=== PATIENT | female | born 1975 | race Caucasian/White ===

== ENCOUNTER 2018-08-19 18:22 | Emergency (ER) | payer OTHER ==
[2018-08-19 18:36] VITALS: BP 123/79; PULSE 67; RESP 18; TEMP 97.9
[2018-08-19] MEDS ORDERED: KETOROLAC 30 MG/ML 1 ML VIAL IM STA (19:31)
[2018-08-19] MEDS ORDERED: MORPHINE SULFATE 4 MG/ML SYRINGE IM STA (19:31)
[2018-08-19] MEDS ORDERED: HYDROmorphone 1 MG/ML 1 ML SYRINGE IM STA (19:33)
--- NOTE | 2018-08-19 19:35 | XR ---
EXAMINATION TYPE: XR elbow limited RT DATE OF EXAM: 08/19/2018 COMPARISON: NONE HISTORY: Pain after falling TECHNIQUE: 2 views FINDINGS: I see no fracture nor dislocation. Joint spaces appear normal. There is no sign of elbow maura int effusion. IMPRESSION: Negative right elbow exam.
--- NOTE | 2018-08-19 19:35 | XR ---
EXAMINATION TYPE: XR shoulder complete RT DATE OF EXAM: 08/19/2018 COMPARISON: NONE HISTORY: Pain after falling TECHNIQUE: 2 views FINDINGS: There is comminuted transverse fracture of the right humeral neck. There is no dislocation. Fracture line appears to extend to the humeral head. Scapula appears intact. IMPRESSION: Comminuted humeral neck fracture. There is displacement up to 1 cm.
--- NOTE | 2018-08-19 20:49 | ED ---
Upper Extremity HPI - General Source: patient Mode of arrival: ambulatory Limitations: no limitations <Leni Terrell - Last Filed: 08/20/18 02:33> <Federica Manzo - Last Filed: 08/20/18 02:48> - General Chief Complaint: Extremity Injury, Upper Stated Complaint: Poss shoulder/elbow dislocation Time Seen by Provider: 08/19/18 18:46 - History of Present Illness Initial Comments: 42-year-old female patient presents to the emergency department today for evaluation of right shoulder and right elbow pain after expressing a fall. Patient states that prior to arrival she was getting out of a boat, states 1 foot on the dock however the boat was still moving which caused her to fall onto the right shoulder. Patient states that she is having severe pain is unable to move the arm. She is reporting a mild tingling sensation to the fingers on the right hand. Denies taking any medication for her symptoms. She denies hitting her head or losing consciousness. Denies any neck or back pain. Denies any history of injury to this extremity. Patient denies any headache, chest pain, shortness of breath, dizziness, weakness, abdominal pain, nausea, vomiting, or difficulties with bowel movements or urination. (Leni Terrell) - Related Data Previous Rx's Medication Instructions Recorded Hydrocodone/Acetaminophen [[place] 1 tab PO Q6HR PRN #12 tab 08/19/18 5-325] Allergies Allergy/AdvReac Type Severity Reaction Status Date / Time No Known Allergies Allergy Verified 08/19/18 18:35 Review of Systems ROS Other: All systems not noted in ROS Statement are negative. <Leni Terrell - Last Filed: 08/20/18 02:33> ROS Other: All systems not noted in ROS Statement are negative. <Federica Manzo - Last Filed: 08/20/18 02:48> ROS Statement: Those systems with pertinent positive or pertinent negative responses have been documented in the HPI. Past Medical History Past Medical History: No Reported History History of Any Multi-Drug Resistant Organisms: None Reported Past Surgical History: Tonsillectomy Additional Past Surgical History / Comment(s): cyst removal Past Psychological History: No Psychological Hx Reported Smoking Status: Never smoker Past Alcohol Use History: Occasional Past Drug Use History: None Reported <Leni Terrell - Last Filed: 08/20/18 02:33> General Exam Limitations: no limitations General appearance: alert, in no apparent distress, other (Physical well- developed, well-nourished adult female patient in no acute distress. Vital signs upon presentation are temperature 97.9F, pulse 67, respirations 18, blood pressure 123/79, pulse ox 100% on room air.) Eye exam: Present: normal appearance, PERRL, EOMI. Absent: scleral icterus, conjunctival injection, periorbital swelling ENT exam: Present: normal exam, normal oropharynx, mucous membranes moist Neck exam: Present: normal inspection, full ROM, other (Nontender, no step-off, no deformity to firm midline palpation of the posterior cervical spine. Full range of motion without pain or limitation.). Absent: tenderness, meningismus, lymphadenopathy Respiratory exam: Present: normal lung sounds bilaterally. Absent: respiratory distress, wheezes, rales, rhonchi, stridor Cardiovascular Exam: Present: regular rate, normal rhythm, normal heart sounds. Absent: systolic murmur, diastolic murmur, rubs, gallop, clicks GI/Abdominal exam: Present: soft, normal bowel sounds. Absent: distended, tenderness, guarding, rebound, rigid Extremities exam: Present: full ROM, tenderness (Right shoulder, right elbow.), normal capillary refill, other (Skin to the right upper extremity is pink, warm, dry. Cap refills less than 3 seconds. Radial pulses 2+ and equal bilaterally. Patient is able to move the fingers on the right hand.). Absent: normal inspection, pedal edema, joint swelling, calf tenderness Back exam: Present: normal inspection, other (Nontender, no step-off, no deformity to firm midline palpation of the thoracic and lumbar vertebrae. Full range of motion without pain or limitation.). Absent: vertebral tenderness Neurological exam: Present: alert, oriented X3, CN II-XII intact Psychiatric exam: Present: normal affect, normal mood Skin exam: Present: warm, dry, intact, normal color. Absent: rash <Leni Terrell M - Last Filed: 08/20/18 02:33> Course Vital Signs 08/19/18 18:31 Temperature 97.9 F Pulse Rate 67 Respiratory 18 Rate Blood Pressure 123/79 O2 Sat by Pulse 100 Oximetry Medical Decision Making - Radiology Data Radiology results: report reviewed, image reviewed <Leni Terrell - Last Filed: 08/20/18 02:33> <Federica Manzo - Last Filed: 08/20/18 02:48> - Medical Decision Making 42-year-old female patient presents to the emergency department today for evaluation of right shoulder and right elbow pain after experiencing a fall. Physical examination did reveal tenderness over the right humerus. Neurovascular status intact to the right upper extremity. She denied head injury, neck injury, back injury. X-rays were obtained and did reveal a comminuted proximal humerus fracture. I did discuss the case with on-call orthopedics Lalo Cesar PA-c, he recommended shoulder immobilizing sling and follow-up in the office. Patient be discharged home with pain medication. Instructions to call orthopedics in the morning for an appointment. Return parameters were discussed in detail. She verbalizes understanding and agrees with this plan. (Leni Terrell) I was available for consultation in the emergency department. The history and physical exam were done by the Midlevel Provider. Medical decision making was done by the Midlevel Provider. I have reviewed the chart, however was not consulted specifically or made aware of this patient by the above midlevel provider and did not personally evaluate, interact with, or disposition this patient on the day of their visit Chart was dictated using [employer] dictation software. Attempts were made to correct any dictation errors however some typographical errors may persist. (Federica Manzo) - Radiology Data Two-view x-ray of the right shoulder is obtained. Report reviewed in its entirety. Impression by Dr. Ndiaye shows comminuted humeral neck fracture. There is displacement a 1 cm. Two-view x-ray of the right elbow was obtained. Report was reviewed in its entirety. Impression by Dr. Ndiaye shows negative right elbow exam. (Leni Terrell) Disposition Is patient prescribed a controlled substance at d/c from ED?: Yes When asked, does pt state using other controlled substances?: No If prescribed controlled substance>3 days was MAPS reviewed?: Prescribed <3 Days If opioid is for acute pain is fill amount 7 days or less?: Yes If Rx opioid, was Start Talking consent form obtained?: Yes Time of Disposition: 20:50 <Leni Terrell - Last Filed: 08/20/18 02:33> <Federica Manzo P - Last Filed: 08/20/18 02:48> Clinical Impression: Closed fracture of right proximal humerus Disposition: HOME SELF-CARE Condition: Good Instructions (If sedation given, give patient instructions): Proximal Humerus Fracture (ED) Additional Instructions: Keep shoulder immobilizer in place until follow-up with orthopedics. When getting dressed, the injured arm is the first to go into a sleeve and the last to come out. Apply ice to the area 20 minutes at a time at least 4 times daily. [facility] first thing in the morning, ask for an appointment with either Dr. Edmonds or Dr. Barnes. Take medications as directed. Return to the emergency department immediately for any new, worsening, or concerning symptoms. Prescriptions: Hydrocodone/Acetaminophen [[place] 5-325] 1 tab PO Q6HR PRN #12 tab PRN Reason: Pain Referrals: Sara Zarate PAC [Primary Care Provider] - 1-2 days Leon Barnes MD [STAFF PHYSICIAN] - 1-2 days
[2018-08-19] MEDS ORDERED: HYDROmorphone 0.5 MG/0.5 ML SYRINGE IM STA (20:50)
== END 2018-08-19 21:11 | disposition home or self-care (01) ==
LOC: EC 18:22
DX: S42.201A Unspecified fracture of upper end of right humerus, initial encounter for closed fracture (principal); M25.521 Pain in right elbow; Z53.8 Procedure and treatment not carried out for other reasons; W19.XXXA Unspecified fall, initial encounter; Y92.89 Other specified places as the place of occurrence of the external cause
CPT/HCPCS: 73030; 73070; 99283; 96372 ×3; L3670; J1885; J1170 ×2

== ENCOUNTER 2018-09-04 07:09 | Observation (INO) | payer OTHER ==
[~2018-09-04 07:09] MED LIST: DEXAMETHASONE SOD PHOSPHATE 10 MG/ML 1 ML VIAL IV ONE; MIDAZOLAM 2 MG/2 ML VIAL IV PRN; ONDANSETRON 4 MG/2 ML VIAL IVP ONE; SCOPOLAMINE 1.5MG/72HR PATCH TRANSDERM ONE; ceFAZolin IN SWFI 2 GM/20 ML SYRINGE IVP ONE
[2018-09-04] MEDS: LACTATED RINGERS 1,000 ML IV SCH (07:52)
[2018-09-04] MEDS: fentaNYL (PF) 50 MCG/ML 2 ML AMP IV ONE ×3 (08:09→15:04)
--- NOTE | 2018-09-04 08:34 | P.ANPRN ---
Procedure Note - Anesthesia - Nerve Block Performed Right Interscalene Single Time Out Performed: Yes Date of Procedure: 09/04/18 Procedure Start Time: : Procedure Stop Time: 08:20 Location of Patient Procedure: PreOp Indication: Acute Post-Operative Pain, Requested by physician Sedation Type: Sedate with meaningful contact maintained Position: Sitting Catheter: None Needle Types: Pajunk Needle Gauge: 21 Technique: Ultrasound Injectate: 0.5% Ropivacaine (see comment for volume) (18cc ropi 0.5% + 3mg dexamethasone) Blood Aspirated: No Pain Paresthesia on Injection Noted: No Resistance on Injection: Normal Events: Uneventful and Well Tolerated Right Other (see comment) Single Time Out Performed: Yes (intercostobrachial) Date of Procedure: 09/04/18 Procedure Start Time: Procedure Stop Time: 08:20 Location of Patient Procedure: PreOp Indication: Acute Post-Operative Pain, Requested by physician Sedation Type: Sedate with meaningful contact maintained Position: Sitting Catheter: None Needle Types: Pajunk Needle Gauge: 21 Injectate: 0.5% Ropivacaine (see comment for volume) (7cc ropi + 1mg dexamethasone) Blood Aspirated: No Pain Paresthesia on Injection Noted: No Resistance on Injection: Normal Events: Uneventful and Well Tolerated
[2018-09-04] MEDS ORDERED: BUPIVACAINE (PF) 0.5% 30 ML VIAL ONE (09:20)
[2018-09-04] MEDS ORDERED: DEXAMETHASONE SOD PHOS (MDV) 100 MG/10 ML VIAL ONE (09:20)
[2018-09-04] MEDS ORDERED: ROCURONIUM BROMIDE 10 MG/ML 10 ML VIAL IV ONE (09:20)
[2018-09-04] MEDS ORDERED: NEOSTIGMINE 1 MG/ML 10 ML VIAL ONE (09:20)
[2018-09-04] MEDS ORDERED: MIDAZOLAM 2 MG/2 ML VIAL ONE (09:20)
[2018-09-04] MEDS ORDERED: GLYCOPYRROLATE 0.2 MG/ML 2 ML VIAL ONE (09:20)
[2018-09-04] MEDS ORDERED: fentaNYL (PF) 50 MCG/ML 2 ML AMP ONE (09:20)
[2018-09-04] MEDS ORDERED: LIDOCAINE 1% INJ 10MG/ML (20 ML MDV) ONE (09:20)
[2018-09-04] MEDS ORDERED: PHENYLEPHRINE-0.9% NACL SYG 1 MG/10 ML SYRINGE ONE (09:20)
[2018-09-04] MEDS ORDERED: SUCCINYLCHOLINE CHLORIDE 100 MG/5 ML SYR IV ONE (09:20)
[2018-09-04] MEDS ORDERED: PROPOFOL 10 MG/ML 20 ML VIAL IV ONE (09:20)
[2018-09-04] MEDS ORDERED: ceFAZolin 1,000 MG in SODIUM CHLORIDE 0.9% 1,000 ML IRRIGATION ONE (09:24)
[2018-09-04] MEDS ORDERED: LACTATED RINGERS 1,000 ML IV ONE ×2 (11:56→15:00)
[2018-09-04] MEDS ORDERED: BUPIVACAINE (PF) 0.5% 30 ML VIAL SQ ONE (13:23)
[2018-09-04] MEDS ORDERED: LIDOCAINE 2%-EPI 1:200,000 20 ML VIAL SQ ONE (13:24)
--- NOTE | 2018-09-04 13:38 | XR ---
EXAMINATION TYPE: XR humerus RT DATE OF EXAM: 09/04/2018 COMPARISON: 08/19/2018 HISTORY: ORIF TECHNIQUE: 3 views submitted FINDINGS: Postsurgical changes appear improved alignment in near anatomic alignment IMPRESSION: Postoperative changes
[2018-09-04] MEDS ORDERED: ONDANSETRON 4 MG/2 ML VIAL IVP PRN (13:51)
[2018-09-04] MEDS: HYDROmorphone 0.5 MG/0.5 ML SYRINGE IVP PRN ×7 (13:58→22:13)
--- NOTE | 2018-09-04 14:37 | XR ---
EXAMINATION TYPE: XR shoulder limited RT, FL guidance operating room DATE OF EXAM: 09/04/2018 CLINICAL HISTORY: Right humeral fracture with open reduction internal fixation. TECHNIQUE: Fluoroscopy. COMPARISON: None. FINDINGS: Fluoroscopic guidance was provided during procedure performed by Dr. Taylor. A total of 1 minute and 19 seconds of fluoroscopic time was utilized during the procedure and 4 spot images w as acquired. Single AP frontal postsurgical view demonstrates improved anatomic alignment, lateral fi xation plate, subcutaneous edema, and subcutaneous emphysema is postsurgical. No shoulder dislocation on a single view. IMPRESSION: As Above.
[2018-09-04] MEDS: LACTATED RINGERS 1,000 ML IV ONE ×2 (15:00→15:21)
[2018-09-04] MEDS: oxyCODONE-APAP 5-325MG 1 EACH TAB PO PRN ×2 (15:40→20:40)
[2018-09-04] MEDS: ceFAZolin IN SWFI 2 GM/20 ML SYRINGE IVP SCH ×2 (16:11→23:01)
[2018-09-04 16:15] VITALS: BMI 21.6
[2018-09-05] MEDS: HYDROmorphone 0.5 MG/0.5 ML SYRINGE IVP PRN ×5 (00:52→12:31)
[2018-09-05] MEDS: oxyCODONE-APAP 5-325MG 1 EACH TAB PO PRN ×3 (01:37→10:56)
[2018-09-05] MEDS: LACTATED RINGERS 1,000 ML IV SCH ×2 (05:20→06:01)
[2018-09-05] MEDS ORDERED: HYDROmorphone 1 MG/ML 1 ML SYRINGE IVP STA (09:33)
--- NOTE | 2018-09-05 09:44 | P.PN ---
Subjective Progress Note Date: 09/05/18 The patient was seen and examined at the bedside. She states the pain has been quite substantial and not adequately relieved by either IV or oral pain medication. It is averaging 9 out of 10. She denies any nausea or vomiting. Objective - Vital Signs Vital signs: Vital Signs Temp 98.5 F 09/05/18 07:06 Pulse 73 09/05/18 07:06 Resp 18 09/05/18 07:06 BP 124/75 09/05/18 07:06 Pulse Ox 98 09/05/18 07:06 Intake & Output 09/04/18 09/05/18 09/05/18 18:59 06:59 18:59 Intake Total 2201 640 400 Output Total 600 Balance 1601 640 400 Intake: IV 2201 Intake, IV Titration 240 Amount Lactated Ringers 1,000 ml 240 @ 20 mls/hr IV .Q24H JULIAN Rx#:[id number] Oral 400 400 Output: Urine 400 Estimated Blood Loss 200 Other: Voiding Method Toilet # Voids 1 - Exam The dressings are clean, dry and in place. No shadowing or strikethrough. Appropriate tenderness to palpation and pain with passive mobilization. Light touch sensation is intact throughout the axillary, distal radial, median and ulnar nerve distributions. Assessment and Plan Assessment: 1. Postop day #1 status post ORIF comminuted right proximal humerus fracture Plan: The patient is struggling with pain. We will adjust the medication regimen, weaning off IV analgesics as soon as possible. Anticipate discharge home today once adequate pain control is been achieved. Continue daily pendulum exercises. Encourage ambulation for DVT prophylaxis. Follow-up outpatient in 7-10 days.
--- NOTE | 2018-09-05 10:23 | P.OP ---
Date of Procedure: 09/04/18 Preoperative Diagnosis: Displaced right proximal humerus fracture Postoperative Diagnosis: Displaced, 4-part right proximal humerus fracture Procedure(s) Performed: Open reduction internal fixation of right proximal humerus fracture Implants: Synthes proximal humeral locking plate with locking and cortical screws Anesthesia: amber DELGADO, local Surgeon: Pantera Taylor Dental Manager #1: Lexi Jaquez Estimated Blood Loss (ml): 200 Condition: stable Disposition: PACU Indications for Procedure: The patient is a pleasant 43-year-old female who sustained a displaced right proximal humerus fracture after mechanical fall. Treatment options (and asso ciated risks and benefits) were discussed in the office. she was initially treated with a hanging arm cast but alignment failed to improve and she elected surgical treatment. In preop, the patient denied any additional questions or concerns and wished to proceed with surgery. Consent forms were signed. The operative site was confirmed and marked. Description of Procedure: The patient was brought to the OR by the anesthesia team and general anesthesia was administered. She was then placed in the beach chair position. All bony prominences were well padded. Prophylactic antibiotics were administered. The right upper extremity was then prepped and draped in standard, sterile fashion. A timeout was performed, confirming patient identifiers, the operative side, site and procedure to be performed: all team members expressed agreement. A deltopectoral approach was utilized. An incision was marked, extending from the tip of the acromion towards the deltoid tuberosity. Skin was sharply incised and full-thickness skin flaps were elevated. Superficial vessels were coagulated as needed with electrocautery. The deltopectoral interval was identified by the fat stripe. The cephalic vein was taken medially and lateral perforating vessels were coagulated. The clavipectoral fascia was released. The conjoined tendon was mobilized and retracted medially. Blunt, finger dissection was used to develop the subdeltoid space. The axillary nerve was palpated and protected throughout the case. Hemorrhagic bursal tissue was resected with a rongeur. The fracture site was identified. There was a large lateral metaphyseal butterfly fragment. The greater tuberosity fragment was in relatively normal anatomic position with respect to the articular surface and lesser tuberosity but the entire articular portion of the head was rotated. There is significant shortening and medial displacement of the shaft. A Chappell elevator was used to release adhesions. Nonabsorbable #2 Fi berWire sutures were passed through the cuff at the greater tuberosity insertion for mobilization the articular fragments. The fracture site was opened, irrigated and cleaned of hematoma and fibrous tissue. A proximal humeral locking plate was selected, inserted and clamped to the shaft. Axial traction was applied to the arm, combined with manipulation of the traction sutures to derotate the articular fragment. Once reduction was achieved, the plate was secured to the bone with K wires. Position and alignment were assessed with fluoroscopy. Residual varus angulation remained. The proximal K wires were removed. A Chappell elevator was inserted through the fracture site to improve the alignment and the K wires were reinserted. Reduction alignment was confirmed on orthogonal imaging. Locking screws were drilled, measured and inserted into the head, checking length and trajectory with imaging. A cortical screw was drilled, measured and inserted to secure the plate to the shaft. The metaphyseal comminution and location of the butterfly fragment limited the options for screw placement. A locking screw was drilled and inserted to further secure the plate to the shaft. The nonabsorbable sutures placed through the cuff were then passed through holes in the plate and tied for additional fixation of the tuberosities. Final x-rays were obtained confirming reduction and alignment. The proximal screws appeared to be well seated within the head on all views. the shoulder was then ranged under live fluoroscopy: no gross motion was appreciated at the fracture site or within the fixation construct. The shoulder articulated smoothly without crepitus or grinding. The wound was thoroughly irrigated with normal saline. The deltopectoral interval was closed with interrupted 0-Vicryl sutures and several nonabsorbable sutures with long tails for easy identification should revision surgery being necessary. The subcutaneous tissues were closed in layers with interrupted 2-0 and 3-0 Vicryl sutures. The skin incision was closed with a running, subcuticular 4-0 Monocryl. Local anesthetic with epinephrine was injected into the maryjane-incisional subcutaneous tissues for adjunctive postoperative pain control and hemostasis. Mastisol and Steri strips were applied, followed by a sterile dressing. All sponge, needle and instrument counts were correct at the end of the case. The patient tolerated the procedure well. She was transferred to her hospital bed and taken to recovery in stable condition.
[2018-09-05] MEDS ORDERED: oxyCODONE-APAP 5-325MG 1 EACH TAB PO PRN (12:38)
[2018-09-05 14:54] VITALS: BP 130/79; PULSE 65; RESP 12; TEMP 98.2
== END 2018-09-05 16:09 | disposition home or self-care (01) ==
LOC: OR 07:09 → 4SSUR 13:50 → OR 23:12 → 4SSUR 23:13
PROVIDERS: ADMIT Orthopaedic Surgery; ATTEND Orthopaedic Surgery
DX: S42.241A 4-part fracture of surgical neck of right humerus, initial encounter for closed fracture (principal); Z87.891 Personal history of nicotine dependence; Z88.7 Allergy status to serum and vaccine; Z98.890 Other specified postprocedural states; Z82.49 Family history of ischemic heart disease and other diseases of the circulatory system
CPT/HCPCS: 23615; 97161; 64415; 73020; 73060; G0378 ×2; C1713; J2250; J1100 ×2; J2710; J2405; J0690 ×2; J2001; J3010; J1170 ×3; J2370; J0330; J2704